=== PATIENT | female | born 1995 | race Caucasian/White ===

== ENCOUNTER → 2023-06-03 09:33 | Outpatient (CLI) | payer BC, SELFPAY ==
[2023-06-03 18:37] LABS: Coronavirus 19, PCR Not Detected (NotDetected); Influenza A, PCR Not Detected (NotDetected); Influenza B, PCR Not Detected (NotDetected)
== END ==
PROVIDERS: PCP Family Medicine; Visit Provider Nurse Practitioner
DX: J06.9 Acute upper respiratory infection, unspecified (principal); R06.2 Wheezing
CPT/HCPCS: 87636

== ENCOUNTER 2025-02-23 15:19 | Outpatient (CLI) | payer MEDICAID, SELFPAY ==
[2025-02-23 19:31] LABS: Hematocrit 43.4 % (37.0-47.0); Hemoglobin 14.0 g/dL (12.2-16.2); Immature Granulocytes % 0.2 %; Mean Corpuscular HGB Conc 32.3 g/dL (31.8-35.4); Mean Corpuscular Hemoglobin 28.6 pg (27.0-31.2); Mean Corpuscular Volume 88.6 fl (81-99); Nucleated Red Blood Cells % 0 %; Platelet Count 263 K/mm3 (142-424); Red Blood Count 4.90 M/mm3 (4.20-5.40); Red Cell Distribution Width-SD 41.4 fL; White Blood Count 6.3 K/mm3 (4.8-10.8)
[2025-02-23 20:07] LABS: Alanine Aminotransferase 15 U/L (12-78); Albumin Level 4.9 g/dl (3.5-5.0); Albumin/Globulin Ratio 1.5 (1.1-1.8); Alkaline Phosphatase 71 U/L (38-126); Anion Gap 14.2 mEq/L (5-15); Aspartate Amino Transferase 24 U/L (14-36); Bilirubin,Total 0.9 mg/dl (0.2-1.3); Blood Urea Nitrogen 8 mg/dl (7-17); Calcium 10.4 mg/dl (8.4-10.2); Carbon Dioxide 23 mmol/L (22.0-30.0); Chloride 108 mmol/L (98-107); Creatinine,Serum 0.60 mg/dl (0.52-1.04); Estimated Glomerular Filt Rate 119 ml/min (>60); GFR (African American) 144 ML/MIN (>60); Globulin 3.2 g/dL (1.3-3.2); Glucose 98 mg/dl (74-100); Potassium 4.2 mmoL/L (3.5-5.1); Sodium 141 mmol/L (136-145); Total Protein,Serum 8.1 g/dl (6.3-8.2)
[2025-02-23 20:37] LABS: Thyroid Stimulating Hormone 0.46 uIU/mL (0.465-4.68)
[2025-02-23 21:43] LABS: Hemoglobin A1C 4.9 % (4.0-6.0)
--- OUTSIDE RECORDS SUMMARY | 2025-02-24 12:18 | XMS_ITS | Clinical Summary ---
Author Organization [employer] [facility] Medical Address [address] [place] [phone] Phone Care Team Providers Care Clinical Program Manager Name Role Phone Guillermo Alan MD Primary Care Physician [phone] Conditions or Problems Problem Name Problem Code Onset Date Status Entry Date Provider Comment Standard Description Annotate Headache, unspecified 017858796 (SNOMED CT) 03/24 Inactive 03/24 Bridgett Gresham APRN Frontal headache Body mass index (BMI) 34.0-34.9; adult Z68.34 (ICD-10-CM ) 01/20 Active 01/20 Vicki Fox APRN Body mass index [BMI] 34.0-34.9, adult Counseling for nutrition Z71.3 (ICD-10-CM ) 01/20 Inactive 01/20 Vicki Ruddy GARCIA Dietary counseling and surveillance Body mass index (BMI) 35.0-35.9; adult Z68.35 (ICD-10-CM ) 11/11 Correction 11/11 Vicki Ruddy GARCIA Body mass index [BMI] 35.0-35.9, adult Counseling for nutrition Z71.3 (ICD-10-CM ) 11/11 Inactive 11/11 Elvia Yen APRN Dietary counseling and surveillance Body mass index (BMI) 35.0-35.9; adult Z68.35 (ICD-10-CM ) 11/11 Removed 11/11 Elvia Yen APRN Body mass index [BMI] 35.0-35.9, adult Body mass index (BMI) 35.0-35.9; adult Z68.35 (ICD-10-CM ) 11/04 Correction 11/04 Elvia Reusch [employer] Body mass index [BMI] 35.0-35.9, adult Bipolar 1 disorder 656259104 (SNOMED CT) 11/11 Active 11/11 Elvia Reusch [employer] Bipolar I disorder Hx of post-trauma tic stress disorder (PTSD) 395414620 (SNOMED CT) 11/11 Active 11/11 Elvia Reusch [employer] History of clinical finding in subject Nevi, multiple 359105299 (SNOMED CT) 11/11 Active 11/11 Elvia Reusch [employer] Multiple benign melanocytic nevi Annual physical 74396715 (SNOMED CT) 11/11 Active 11/11 Elvia Reusch [employer] History and physical examination, annual for health maintenance Counseling for nutrition Z71.3 (ICD-10-CM ) 11/04 Inactive 11/04 Eileen Loo APRN Dietary counseling and surveillance Body mass index (BMI) 35.0-35.9; adult Z68.35 (ICD-10-CM ) 11/04 Removed 11/04 Eileen Loo APRN Body mass index [BMI] 35.0-35.9, adult Body mass index (BMI) 35.0-35.9; adult Z68.35 (ICD-10-CM ) 09/30 Correction 09/30 Eileen Loo APRN Body mass index [BMI] 35.0-35.9, adult Counseling for nutrition Z71.3 (ICD-10-CM ) 09/30 Inactive 09/30 Javier Ruiz APRN Dietary counseling and surveillance Body mass index (BMI) 35.0-35.9; adult Z68.35 (ICD-10-CM ) 09/30 Removed 09/30 Javier Ruiz [employer] Body mass index [BMI] 35.0-35.9, adult Body mass index (BMI) 35.0-35.9; adult Z68.35 (ICD-10-CM ) 07/22 Correction 07/22 Javier Ruiz APRN Body mass index [BMI] 35.0-35.9, adult Chronic low back pain 227534848 (SNOMED CT) 09/30 Active 09/30 Javiertremayne Valegunner GARCIA Chronic low back pain Counseling for nutrition Z71.3 (ICD-10-CM ) 07/22 Inactive 07/22 Eileen Loo APRN Dietary counseling and surveillance Body mass index (BMI) 35.0-35.9; adult Z68.35 (ICD-10-CM ) 07/22 Removed 07/22 Eileen Loo APRN Body mass index [BMI] 35.0-35.9, adult Contracepti on management 116451895 (SNOMED CT) 07/22 Active 07/22 Eileen Loo APRN Contraception care management Body mass index (BMI) 37.0-37.9; adult Z68.37 (ICD-10-CM ) Resolved Eileen Loo APRN Body mass index [BMI] 37.0-37.9, adult Body mass index (BMI) 37.0-37.9; adult Z68.37 (ICD-10-CM ) Removed Guillermo Alan MD Body mass index [BMI] 37.0-37.9, adult Allergy to seafood 51994939 (SNOMED CT) Active Guillermo Alan MD Allergy to seafood Asthma, exercise induced, intermitten t, mild 68219863 (SNOMED CT) Active Guillermo Alan MD Exercise-induc ed asthma Body mass index (BMI) 36.0-36.9; adult Z68.36 (ICD-10-CM ) 04/05 Correction 04/05 Guillermo Alan MD Body mass index [BMI] 36.0-36.9, adult Contracepti on management 007054052 (SNOMED CT) Inactive Guillermo Alan MD Contraception care management Body mass index (BMI) 36.0-36.9; adult Z68.36 (ICD-10-CM ) 04/05 Removed 04/05 Guillermo Alan MD Body mass index [BMI] 36.0-36.9, adult Contracepti on counseling 744781883 (SNOMED CT) 04/05 Inactive 04/05 Guillermo Alan MD Contraception care education Encounter for surveillanc e of implantable subdermal contracepti ve 697688789 (SNOMED CT) 04/05 Inactive 04/05 Guillermo Alan MD Surveillance of subcutaneous contraceptive implant Depression 69225808 (SNOMED CT) 04/05 Active 04/05 Guillermo Alan MD Depressive disorder Anxiety Disorder 489266071 (SNOMED CT) 04/05 Active 04/05 Guillermo Alan MD Anxiety disorder Medications Medication Instructions Start Date Stop Date Generic Name ND Provider SUMATRIPTAN SUCCINATE 50 MG TABS Take 1 tablet by mouth as directed as needed Take 1 tablet at onset of headache. May repeat in 2 hours if needed. Max 2 doses/24 hours 03/24 sumatriptan succinate [id number] Bridgett Gresham [employer] ALBUTEROL SULFATE HFA 108 (90 Base) MCG/ACT AERS Take 2 puff every four hours as needed 11/11 albuterol sulfate 98382926041 Elvia Yen [employer] CLONAZEPAM 1 MG TABS Take 2 tablet by mouth twice a day 04/05 clonazepam 23294926795 Radha Pelayo MA MEDROXYPROGESTERONE ACETATE 150 MG/ML SUSP Inject 150 mg intramuscularly every three months 07/22 medroxyprogester one 85508210008 Eileen Loo APRN GABAPENTIN 100 MG CAPS 07/22 gabapentin 24739231939 Giana Rivera MA TIZANIDINE HCL 4 MG TABS Take 1 tablet by mouth three times a day as needed 09/30 tizanidine 10087892295 Naomi Nichols [employer] One-A-Day WeightSmart 200-18-0.4 mg tablet 11/04 mv,ca,fe,min-fa- hrb 19896460812 Eileen Loo APRN EPINEPHRINE 0.3 MG/0.3ML SOAJ inject into thigh as needed for allergic reaction 02/19 epinephrine 21610821771 Naomi Verdegilda GARCIA ALBUTEROL SULFATE HFA 108 (90 Base) MCG/ACT AERS TAKE 2 PUFFS EVERY 4 HOURS NEEDED FOR WHEEZING 11/11 ALBUTEROL SULFATE 91598033128 Elvia Reusccora CAMERONN ONE-A-DAY WEIGHT SMART ADVANCE ORAL TABLET 11/04 MULTIPLE VITAMINS-MINERAL S 45983084721 Eileen Loo APRN TIZANIDINE HCL 4 MG TABS TAKE 1 TABLET BY MOUTH 3 TIMES A DAY NEEDED FOR MUSCLE PAIN AND SPASM 09/30 TIZANIDINE HCL 74278952779 Javier Valegunner GARCIA PREDNISONE 10 MG TABS 4 BY MOUTH EVERY DAY FOR 3 DAYS; 3 BY MOUTH EVERY DAY FOR 3 DAYS; 2 PO BY MOUTH FOR 3 DAYS; 1 BY MOUTH FOR 3 DAYS 09/30 PREDNISONE [id number] Javier Valegunner GARCIA MEDROXYPROGESTERONE ACETATE 150 MG/ML SUSP INJECT 150 MG EVERY 3 MONTHS 07/22 MEDROXYPROGESTER ONE ACETATE 55389224054 Eileen Loo APRN GABAPENTIN 100 MG CAPS 07/22 GABAPENTIN 00006432819 Eileen Loo APRN EPIPEN 2-BERTA 0.3 MG/0.3ML SOAJ INJECT INTRAMUSCULARLY NEEDED FOR ALLERGIC REACTION 05/26 EPINEPHRINE 83555139376 Guillermo Alan MD ALBUTEROL SULFATE HFA 108 (90 Base) MCG/ACT AERS TAKE 2 PUFFS EVERY 4 HOURS NEEDED FOR WHEEZING AND PRIOR TO EXERCISE 05/26 ALBUTEROL SULFATE 31323248870 Guillermo Alan MD MEDROXYPROGESTERONE ACETATE 150 MG/ML SUSP To be injected at affice visit. 04/05 MEDROXYPROGESTER ONE ACETATE 92897183525 Guillermo Alan MD CLONAZEPAM 1 MG TABS Take 2 tablets PO twice a day. 04/05 CLONAZEPAM [id number] Guillermo Alan MD Medications Administered No information available. Allergies, Adverse Reactions, Alerts Allergy Name Reaction Description Start Date Severity Statu s Provider BEE STINGS anaphylaxis Critical Active Elvia Re usch [employer] ADHESIVE TAPE rash Moderate Active Elvia R eusch [employer] SEAFOOD ANAPHALAXIS Critical Active Eileen Loo [employer] LATEX RASH, SOB Severe Active Eileen dumont [employer] Results Date Name Value Unit Range Flag Description Office Visit: 24yo Fem DEPO RM8 Vacc done PREG TST URN negative beta HC G, urine, semiquantitative Office Visit: mid back pain/ freq urination RM 3 ready LABS ORDERED Urine Dip Auto 26541 Laboratory tests ordered SPEC GR URIN 1.025 Specific gravity of Urine by Test strip PH URINE 7.0 pH of Urine by Test strip GLUCOSE, URN negative Glucose [Mass/volume] in Urine by Test strip BILIRUBIN UR negative Bilirub in.total [Presence] in Urine by Test strip KETONES URN negative Ketones [Mass/volume] in Urine by Test strip BLOOD UR DIP negative blood i n urine (hemoglobin) by dipstick PROTEIN, URN negative protein , urine, semiquantitative (dipstick) UROBILINOGEN negative Urobili nogen [Presence] in Urine by Test strip NITRITE URN negative Nitrite [Presence] in Urine by Test strip WBC DIPSTK U negative Leukocy te esterase [Presence] in Urine by Test strip Lab Report: LIPID PANEL WITH REFLEX TO DIRECT LDL, LIPID PANEL WITH REFL ... TSH 1.99 u[iU]/mL N Thyrotropin [Units/volume] in Serum or Plasma HEP C AB NON-REACTIVE NON-REACT EVITA N Hepatitis C virus Ab [Presence] in Serum BASO % MANU 0.6 % N basophils as percent of blood leukocytes, manual count EOS % MANU 5.0 % N eosinophil s as percent of blood leukocytes, manual count MONOCYTE % 4.8 % N Monocytes/ 100 leukocytes in Blood by Automated count LYMPH% P BLD 42.3 % N lymphocy muna as percent of blood leukocytes PMN % 47.3 % N Neutrophils/1 00 leukocytes in Blood by Automated count ABS BASOS 50 {Cells}/u L 0-200 N Basophils [#/volume] in Blood ABS EOS 420 {Cells}/u L 15-500 N Eosinophils [#/volume] in Blood ABS MONOS 403 {Cells}/u L 200-950 N Monocytes [#/volume] in Blood ABSLYMPHCT 3553 {Cells}/u L 850-3900 N Lymphocytes [#/volume] in Blood ABS NEUTROPH 3973 CELLS/UL 10*3/uL 0239-8019 N Neutrophils [#/volume] in Blood MPV 11.9 fL 7.5-12.5 N Platelet justin n volume [Entitic volume] in Blood by Nell PLATELETK/UL 302 THOUSAND/UL 10*3/uL 140-400 N platelet count RDW 12.2 % 11.0-15.0 N Erythrocyte distribution width [Ratio] by Automated count OL-MCHC 33.9 g/dL 32.0-36.0 N mean corpus cular hemoglobin concentration, rbc MCH 29.7 pg 27.0-33.0 N MCH [Entiti c mass] by Automated count MCV 87.5 fL 80.0-100. 0 N MCV [Entitic volume] by Automated count HCT 43.9 % 35.0-45.0 N Hematocrit [Volume Fraction] of Blood by Automated count HGB 14.9 g/dL 11.7-15.5 N Hemoglobin [Mass/volume] in Blood RBC M/UL 5.02 MILLION/UL 10*6/uL 3.80-5.10 N re d blood count WBC CT BLOOD 8.4 10*3/uL 3.8-10.8 N leukocy te count, blood SGPT (ALT) 18 U/L 6-29 N Alanine aminotransferase [Enzymatic activity/volume] in Serum or Plasma SGOT (AST) 15 U/L 10-30 N Aspartate aminotransferase [Enzymatic activity/volume] in Serum or Plasma ALK PHOS 57 U/L 31-125 N Alkaline alejandro sphatase [Enzymatic activity/volume] in Blood BILI TOTAL 0.3 mg/dL 0.2-1.2 N Bilirubin. total [Mass/volume] in Serum or Plasma A/G RATIO 1.5 (calc) 1.0-2.5 N Albumin/ Globulin [Mass Ratio] in Serum or Plasma GLOBULIN TOT 3.1 G/DL (CALC) g/dL 1.9-3.7 N Globulin [Mass/volume] in Serum ALBUMIN EOP 4.6 g/dL 3.6-5.1 N Albumin [Mass/volume] in Serum or Plasma by Electrophoresis PROTEIN, TOT 7.7 g/dL 6.1-8.1 N Protein [Mass/volume] in Serum or Plasma CALCIUM 9.9 mg/dL 8.6-10.2 N Calcium [Moles/volume] in Serum or Plasma CO2 24 mmol/L 20-32 N Carbon dioxid e, total [Moles/volume] in Venous blood CHLORIDE BLD 106 mmol/L 98-110 N chloride , blood POTASSIUM 4.2 mmol/L 3.5-5.3 N Potassium [Moles/volume] in Serum or Plasma SODIUM 138 mmol/L 135-146 N Sodium [Moles/volume] in Serum or Plasma BUN/CREAT NOT APPLICABLE (calc) 6-22 Urea nitrogen/Creatinine [Mass Ratio] in Serum or Plasma EGFR IF AFA 116 mL/min/1. 73m2 >OR = 60 N Glomerular filtration rate/1.73 sq M.predicted among blacks [Volume Rate/Area] in Serum, Plasma or Blood by Creatinine-based formula (MDRD) EGFR 100 mL/min/1. 73m2 >OR = 60 N Glomerular filtration rate/1.73 sq M.predicted [Volume Rate/Area] in Serum, Plasma or Blood by Creatinine-based formula (MDRD) CREATININE 0.82 mg/dL 0.50-1.10 N Creatini ne [Mass/volume] in Serum or Plasma BUN 12 mg/dL 7-25 N Urea nitrogen [Mass/volume] in Serum or Plasma GLUCOSE SER 91 mg/dL 65-99 N Glucose [Mass/volume] in Serum or Plasma NON-HDL CHOL 99 MG/DL (CALC) mg/dL <130 N cholesterol, non-HDL, total CHOL/HDL % 3.0 (calc) <5.0 N cholest rojas/HDL ratio, serum, percent LDL 83 MG/DL (CALC) mg/dL N Ariella sterol in LDL [Mass/volume] in Serum or Plasma - mg/dL TRIGLYC TOT 78 mg/dL <150 N Triglycer jasmyne [Mass/volume] in Serum or Plasma - mg/dL HDL 50 mg/dL >OR = 50 N Cholesterol in HDL [Mass/volume] in Serum or Plasma - mg/dL CHOLESTEROL 149 mg/dL <200 N Cholester ol [Mass/volume] in Serum or Plasma - mg/dL Plan of Care Type Date Detail Care Plan Goal: Reduce Derek ght Target: Lose 1-2lbs / week Instructions: Clinician: Nutrition counseling;Clinician: Activity counseling;Patient: Follow prescribed low calorie diet;Patient: Daily activity as tolerated [facility]erral [facility], [address] [place] [address], [phone] Referral Psychiatry Refer [facility] General Pending order CT Brain w & w-o ut contrast Pending order Injection(s) Ord ered Pending order Depo Provera 150 mg No Charge Pending order T1 Hep C Ab Pending order T1 CBC with diff Pending order T1 CMP Pending order T1 HGBA1c Pending order T1 Lipid Panel Pending order T1 TSH reflex to free T4 Pending order Diagnostic/Thera putic/Prophylactic Injection IM/SC Administration Pending order Depo Provera 150 mg No Charge Pending order Urine Dip Auto 8 1003 Pending order X-Ray Lumbar Spi ne Pending Order exclud ed from report: Pending order X-Ray Sacrum Pending Order exclud ed from report: Pending order Depo Provera 150 mg No Charge Pending order Diagnostic/Thera putic/Prophylactic Injection IM/SC Administration Pending order Injection(s) Ord ered Pending order Test 8 1025 Pending order Depo Provera 150 mg No Charge Procedures Code Procedure Name Date Entry Date [facility]-[id number] Medication Reconciliation CPT-3074F Most recent systolic blood pressure <130 mm Hg CPT-3078F Most recent diastoli c blood pressure <[address] BRAIN W&WO CT Brain w & w-out contrast [id number] Medication Reconciliation CPT-3075F Most recent systolic blood pressure 130-139 mm Hg CPT-3079F Most recent diastoli c blood pressure 80-89 mm Hg CPT-1159F Medication list docu mented in medical record CPT-1160F Review of all medica tions by a prescribing practitioner Inj Order Injection(s) Ordered CPT-J1866TO Depo Provera 150 mg No Charge Dermatology [facility] GEN Psychiatry Referral General SCT-[id number] Medication Reconciliation CPT-3074F Most recent systolic blood pressure <130 mm Hg CPT-3078F Most recent diastoli c blood pressure <80 mm Hg [facility] 8472 T1 Hep C Ab [facility] 6399 T1 CBC with diff [facility] 15530 T1 CMP [facility] 496 T1 HGBA1c [facility] 28372 T1 Lipid Panel [facility] 14351 T1 TSH reflex to free T4 07/24/23 SCT-[id number] Medication Reconciliation CPT-3074F Most recent systolic blood pressure <130 mm Hg CPT-3078F Most recent diastoli c blood pressure <80 mm Hg CPT-51491 Diagnostic/Theraputi c/Prophylactic Injection IM/SC Administration CPT-M8050RP Depo Provera 150 mg No Charge SCT-[id number] Medication Reconciliation X-Ray Lumbar Spine X-Ray Lumbar Spine 07/23/12 X-Ray Sacrum X-Ray Sacrum CPT-3075F Most recent systolic blood pressure 130-139 mm Hg CPT-3078F Most recent diastoli c blood pressure <80 mm Hg CPT-71118 Urine Dip Auto 51599 SCT-[id number] Medication Reconciliation CPT-3075F Most recent systolic blood pressure 130-139 mm Hg CPT-3079F Most recent diastoli c blood pressure 80-89 mm Hg CPT-B6177MT Depo Provera 150 mg No Charge CPT-12384 Diagnostic/Theraputi c/Prophylactic Injection IM/SC Administration Inj Order Injection(s) Ordered SCT-[id number] Medication Reconciliation Inj Order Injection(s) Ordered CPT-3074F Most recent systolic blood pressure <130 mm Hg CPT-3079F Most recent diastoli c blood pressure 80-89 mm Hg CPT-1159F Medication list docu mented in medical record CPT-1160F Review of all medica tions by a prescribing practitioner CPT-15577 Test 36581 CPT-V0109ZV Depo Provera 150 mg No Charge SCT-[id number] Medication Reconciliation CPT-64588 Nexplanon Removal CPT-3074F Most recent systolic blood pressure <130 mm Hg CPT-3078F Most recent diastoli c blood pressure <80 mm Hg Vital Signs Date Name Value Unit Description BMI (Body Mass Index) 33.94 kg/m2 Bod y Mass Index (Ratio) Body Temperature 97.3 [degF] temperat ure E&M Body Temperature 36.28 Amanda temperat ure in centigrade E&M BP Diastolic 59 mm[Hg] blood pressu re, diastolic BP Systolic 88 mm[Hg] blood pressur e, systolic BSA (Body Surface Area) 2.25 b liam surface area Heart Rate 82 /min pulse rate 10 Heart Rate 54 /min pulse rate Height 69 [in_us] height E&M Height 175.26 cm height in cent imeters E&M Weight Measured 104.09 kg weight in kilograms E&M Weight Measured 229 [lb_av] weight E& M Weight Measured 229 [lb_av] weight E& M Respiratory Rate 20 /min respirat ory rate E&M Immunizations Vaccine Administration Date Standard Description CVX Co de Dose COVID-19 mRNA (MOD) COVID-19 mRNA (MOD) 207 Unknown COVID-19 mRNA (MOD) COVID-19 mRNA (MOD) 207 Unknown Advance Directives No information available.
--- OUTSIDE RECORDS SUMMARY | 2025-02-24 12:18 | XMS_ITS | Clinical Summary ---
Author Organization [facility] [place] Address [address] [phone] Phone Care Team Providers Care Dag Coater Name Role Phone Unavailable Primary Care Provider Unavailabl e Allergies Active Allergy Reactions Criticality Noted Date Comments Adhesive Rash 11/03/2015 irritation Bee Venom Protein (Honey Bee) Anaphylaxis High Latex Rash High 11/04/2020 Prednisone Anaphylaxis High 01/14/2017 Shellfish Containing Products Hives ALL SEAFOOD Medications * This document contains information received from the source organization and may not represent a complete record from that organization. gabapentin (NEURONTIN) 100 mg Oral Capsule GABAPENTIN 100 MG CAPS 1 Active meloxicam (MOBIC) 15 mg Oral TabletIndication s:Acute right-sided low back pain without sciatica Take 1 Tablet by mouth daily. 30 Tablet 2 1 Active Additional Information Patient not taking.Reason: Therapy Completed, Reported on 05/01/2022 ibuprofen (ADVIL;MOTRIN) 600 mg Oral TabletIndication s:Abscess of left breast Take 600 mg by mouth as needed. OTC 9 Active tiZANidine (ZANAFLEX) 4 mg Oral Tablet TAKE ONE TABLET BY MOUTH 3 TIMES DAILY NEEDED FOR MUSCLE PAIN OR SPASM 90 Tablet 1 3 Active clindamycin (CLEOCIN T) 1 % Top GelIndications:H idradenitis suppurativa Apply topically under breasts and in armpits BID prn flares of HS, otherwise daily for maintenance 60 g 2 3 Active PROAIR HFA 90 mcg/actuation Inhl HFA Aerosol Inhaler Inhale 2 Puffs into the lungs 4 times daily. 1 Each 2 3 Active EPINEPHrine (EPIPEN) 0.3 mg/0.3 mL Inj Auto-Injector Inject 0.3 mL into the muscle as needed for Anaphylaxis. 1 Each 2 3 Active albuterol (PROVENTIL HFA;VENTOLIN HFA) 90 mcg/actuation Inhl HFA Aerosol Inhaler Inhale 2 Puffs into the lungs every 4 hours as needed for Wheezing. 1 Each 2 3 Active levomefolate-alg al oil 15-90.314 mg Oral Capsule Take 15 mg by mouth daily. 30 Capsule 2 3 Active doxycycline monohydrate (ADOXA) 100 mg Oral TabletIndication s:Hidradenitis suppurativa TAKE ONE TAB BY MOUTH TWICE A DAY WITH FOOD AND A FULL GLASS OF WATER. DO NOT LAY DOWN WITHIN TWO HOURS OF TAKING THIS MEDICATION 60 Tablet 3 Active hydrOXYzine (ATARAX) 25 mg Oral Tablet Take 1 Tablet by mouth 2 times daily as needed for Anxiety. 30 Tablet 4 Active Active Problems Patient Care Coordination No te Formatting of this note migh t be different from the original. [facility] -NS:01/14/2022 Interventional Pain Protocol: Problem Noted Date Diagnosed Date Marijuana dependence 09/25/2023 Tobacco use disorder 02/06/2022 Overview (02/06/2022): 1/2 ppd for 5 years Moderate major depression 12/20/2021 PTSD (post-traumatic stress disorder) 12/20/2021 Food insecurity 02/26/2021 Overview (02/06/2022): Per [facility] Protocol Body mass index (BMI) 34.0-34.9, adult 1 Multiple benign melanocytic nevi 11/11/2020 Personal history of other mental and behavioral disorders 11/11/2020 Chronic low back pain 09/30/2020 Contraception management 07/22/2020 Exercise-induced asthma 04/26/2020 Allergy to seafood 04/26/2020 ETD (eustachian tube dysfunction) 07/27/2015 Idiopathic scoliosis 06/13/2015 Decreased hearing of both ears 2015 Overview (02/06/2022): Noted on screening ADD (attention deficit disorder) 12/05/2014 Adolescent idiopathic scoliosis of thoracic bill on 12/05/2014 Overview (02/06/2022): Mild, 13 degrees per survey films 12/02. Asthma, mild persistent 12/05/2014 Thoracic back pain 12/05/2014 Resolved Problems Problem Noted Date Diagnosed Date Resolved Date Depression 04/05/2020 05/30/2022 OCD (obsessive compulsive disorder) 12/05/2014 08/04/2023 Encounters Date Type Department Care Team Description 12/10/2024 Telephone [facility] [address] [place], [place] [id number] Toña Johnson, Clerical Staff Other (EDS referral) from Last 3 Months Immunizations Immunization Administration Dates Next Due DTaP 03/02/2001, 8,1996,09/29,1996 Hepatitis B, Ped/Adol 1996,1996,02/1996 HiB (PRP-T) 10/04/1997, 7,1996,07/27 IPV 03/02/2001, 7,1996,07/27 Influenza Vaccine Quadrivalent PF 2015 MMR 03/02/2001,05/31/1997 Meningococcal Conjugate 02/27/2010 Moderna SARS-CoV-2 Booster V accine 18+ Yrs (Light Blue Border) 06/20/2021 Pneumococcal Conjugate Vacci ne 13 Valent 03/02/2001 Tdap 05/30/2008 Varicella 02/27/2010,05/31/1997 Surgical History Surgery Date Site/Laterality Comments ABDOMINAL EXPLORATION SURGERY to remove iud Medical History Medical History Date Comments Bipolar depression (HCC) Generalized anxiety disorder PTSD (post-traumatic stress disorder) Family History Medical History Relation Name Comments Allergy (Severe) Mother Relation Name Status Comments Mother Social History Tobacco Use Types Packs/Day Years Used Date Smoking Tobacco: Former Cigarettes 1 6.6 S tarted: 2019 Smokeless Tobacco: Never Alcohol Use Standard Drinks/Week Comments Not Currently 0 (1 standard drink = 0.6 oz pur e alcohol) PHQ-2 Answer Date Recorded PHQ-2 Total Score 0 04/17/2021 Comments No Sex and Gender Information Value Date Recorded Sex Assigned at Not on file Legal Sex Female 7:52 AM EDT Gender Identity Not on file Sexual Orientation Not on file Obstetrics History Last Filed Vital Signs Vital Sign Reading Time Taken Comments Blood Pressure 128/78 08/04/2023 9:52 AM EST per pt on VV Pulse 76 02/06/2022 7:37 PM EDT Temperature 37.1 C (98.8 F) 02/06/2022 7:37 PM EDT Respiratory Rate 16 02/06/2022 7:37 PM EDT Oxygen Saturation 95% 02/06/2022 7:3 7 PM EDT Inhaled Oxygen Concentration - - Weight 96.7 kg (213 lb 4 oz) 02/06/2022 7:37 PM EDT Height 175.3 cm (5' 9 ) 02/06/2022 7:37 PM EDT Body Mass Index 31.49 02/06/2022 7:37 PM EDT Plan of Treatment Health Maintenance Due Date Last Done Comments Annual Wellness Exam 1999 Pneumococcal Vaccine 0-49 (2 of 2 - PPSV23, PCV20, or PCV21) 2002 03/02/2001 Cervical Cancer Screening 2017 Pap Smear 2017 DTaP/TDaP/Td (7 - Td or Tdap) 05/30/2018 05/30/2008, 03/02/2001, 10/04/1997, Additional history exists COVID-19 Vaccine ( season) 2024 05/25/2022, 06/20/2021, 11/28/2020, Additional history exists Influenza Vaccine (#1) 2025 08/29/2023, 2014 Hepatitis B Vaccine Completed 1996, 1996, 1996 Meningococcal B Vaccine Aged Out No l onger eligible based on patient's age to complete this topic Goals Goal Patient Goal Type Associated Problems Recent Progress Patient-Stated? Author Maintain a healthy diet, exercise regularly and maintain an ideal body weight General No Malinda Franks RMA Stay Tobacco Free Lifestyle No Malinda Franks RMA [place] [place] [address] [facility] Subscriber Plan / Payer (Ef fective 2024-) Name:Kingston Toinne Relation to Subscriber:Self Name:Kingston To Payer ID:Not on file Group ID:Not on file Type:Not on file Address: [address] [place] [id number] [facility]
== END 2025-02-23 23:59 | disposition home or self-care (01) ==
LOC: LAB.DROPOF 02-24 12:16
PROVIDERS: PCP Obstetrics & Gynecology; Visit Provider Obstetrics & Gynecology
DX: Q79.60 Ehlers-Danlos syndrome, unspecified (principal); F41.1 Generalized anxiety disorder; E66.01 Morbid (severe) obesity due to excess calories; R68.82 Decreased libido; R53.83 Other fatigue; Z79.3 Long term (current) use of hormonal contraceptives; Z68.36 Body mass index [BMI] 36.0-36.9, adult
CPT/HCPCS: 80053; 83036; 84403; 84443; 85025